=== PATIENT | male | born 1985 | race Caucasian/White ===

== ENCOUNTER → 2021-04-29 16:00 | Emergency (ER) | payer OTHER, SELFPAY | PROVIDERS: Emergency Provider Nurse Practitioner | DX: Z53.21 Procedure and treatment not carried out due to patient leaving prior to being seen by health care provider (principal) | CPT/HCPCS: 99199 ==

== ENCOUNTER → 2021-07-01 08:37 | Outpatient (CLI) | payer OTHER, SELFPAY ==
[2021-07-02 01:26] LABS: SARS-CoV-2 RNA PCR Positive
== END ==
DX: U07.1 COVID-19 (principal)
CPT/HCPCS: C9803; U0003; U0005